=== PATIENT | male | born 1975 | race Caucasian/White ===

== ENCOUNTER 2018-10-14 23:04 | Inpatient (IN) | payer BC, SELFPAY ==
--- NOTE | 2018-10-14 23:11 | ED_ITS ---
HPI - Altered Mental Status General Chief Complaint: Psychiatric Symptoms Stated Complaint: hallucinations Time Seen by Provider: 10/14/18 23:11 Source: EMS and police Mode of arrival: EMS Limitations: altered mental status History of Present Illness HPI narrative: 43-year-old male. HPI was provided by police and EMS. Please stated that they were called by a neighboring Police Department about an individual who his head made text messages stating that there was intentions of harming himself. They [place] [address]. When the police arrived they stated that he was alert however was confused. Was obviously hallucinating. Was calm. They did find a bottle of 25 mg Benadryl with an original total count of 72 tablets however the bottle was empty. The patient did admit to taking 3 of these pills in order to help him sleep. He denied taking any other medications. Upon arrival here to the emergency department patient was calm. He did know that he was in [place] and at the hospital however was tangential. Would not directly answer many questions. He did state that he did not want to hurt himself. He did once again deny taking any other medications. He did admit to seeing children running around the emergency department which there was none at the time. Related Data Home Medications Medication Instructions Recorded Confirmed No Known Home Medications 10/15/18 10/15/18 Allergies Allergy/AdvReac Type Severity Reaction Status Date / Time Penicillins [PENICILLINS] Allergy Unknown Verified 10/15/18 00:48 Sulfa (Sulfonamide Allergy Unknown Verified 10/15/18 00:48 Antibiotics) [SULFA (SULFONAMIDE ANTIBIOTICS)] Review of Systems Review of Systems Very limited given his altered mental status. Please see HPI for review of systems ROS Unobtainable: Unobtainable due to mental condition Exam Initial Vital Signs Initial Vital Signs: Vital Signs Temperature 97.6 F 10/14/18 23:17 Pulse Rate 117 H 10/14/18 23:17 Respiratory Rate 23 10/14/18 23:17 Blood Pressure 165/103 H 10/14/18 23:17 Pulse Oximetry 98 10/14/18 23:17 Const General: cooperative, comfortable, well developed, well groomed and No acute distress Orientation: awake, oriented to person, oriented to place and confused (Confused about why he was here) Limitations: altered mental status HENUT Head: normal to inspection and normocephalic Face and sinus: normal facial exam Mouth: No moist mucous membranes (Dry mucous membranes) Eyes Other: 8 mm bilateral and reactive Resp Effort & Inspection: normal respiratory effort Auscultation: clear to auscultation bilaterally Cardio Rate: tachycardic Rhythm: regular rhythm Pulses: radial pulses present GI Inspection: non-distended Palpation: soft, No firm and No tender Skin Lesions: no lesions Rashes: no rashes Other: Dry skin Neuro General: alert, awake and moves all extremities Cognition: abnormal cognition Speech: speech normal Motor: muscle tone normal throughout Extrem General: normal to inspection and capillary refill normal Psych Appearance: grossly normal and well kempt Speech and Movement: not agitated, restless and slurred speech Mood: euphoric mood and No angry Affect: normal affect Attitude: cooperative Thought Process: flight of ideas, illogical, perseverating and tangential Thought Content: delusions, hallucinations visual and suicidality Judgment: poor Scores GCS [place] coma scale eye opening: Spontaneous [place] coma scale verbal response: Confused [place] coma scale motor response: Obey commands Roland coma scale total score: 14 Course Orders Ordered: ED Orders 10/14/18 22:55 Acetaminophen Stat Complete Blood Count AUTO DIFF Stat Comprehensive Metabolic Panel Stat Ethanol (ETOH) Stat Ketones (Beta-Hydroxybutyrate) Stat Lipase Stat Salicylate Stat Thyroid Stimulating Hormone Stat 10/14/18 23:14 CT head/brain wo con Stat EKG-12 Lead Stat 10/14/18 23:34 Ammonia (NH3) Stat Lactate (Lactic Acid) Stat 10/15/18 00:42 Urine Drug Screen, Rapid Stat 10/15/18 00:44 Urinalysis Sreen (Dip Only) Stat Vital Signs - 8 hr 10/14/18 23:17 10/15/18 00:00 10/15/18 00:47 Temperature 97.6 F Pulse Rate 117 H 121 H 128 H Respiratory Rate 23 20 15 Blood Pressure 165/103 H Blood Pressure [Left Arm] 168/104 H 158/109 H Pulse Oximetry 98 97 100 MDM - Altered Mental Status Lab Data Attestation: I reviewed the patient's lab results. Result diagrams: 10/14/18 22:55 10/14/18 22:55 Lab Results 10/14/18 10/14/18 10/14/18 Range/Units 22:55 22:55 22:55 WBC 12.0 H (4.5-11.0) X10^3/uL RBC 6.03 H (4.5-5.9) X10^6/uL Hgb 17.3 (13.5-17.5) g/dL Hct 50.4 (41-53) % MCV 83.7 (80-100) fL MCH 28.7 (26-34) PG MCHC 34.3 (30-36) % RDW 13.3 (11.6-14.8) % Plt Count 242 (150-400) X10^3/uL Neut % (Auto) 72.0 (50-75) % Lymph % (Auto) 18.6 L (25-40) % [place] % (Auto) 7.3 (3-14) % Eos % (Auto) 1.7 L (2-4) % Baso % (Auto) 0.4 (0-2) % Neut # (Auto) 8600 H (2470-3853) /uL Lymph # (Auto) 2200 (7259-2325) /uL [place] # (Auto) 900 (0-900) /uL Eos # (Auto) 200 (0-450) /uL Baso # (Auto) 0 (0-100) /uL Sodium 139 (137-145) mmol/L Potassium 3.1 L (3.4-5.1) mmol/L Chloride 98 (98-107) mmol/L Carbon Dioxide 30 (22-32) mmol/L BUN 8 L (9-20) mg/dL Creatinine 0.80 (0.66-1.25) mg/dL Estimated GFR > 60.0 (>60) mL/min BUN/Creatinine Ratio 10.0 (6-22) Glucose 120 H (70-100) mg/dL Lactate (0.7-2.1) mmol/L Calcium 9.1 (8.4-10.2) mg/dL Total Bilirubin 0.8 (0.2-1.3) mg/dL AST 34 (17-59) IU/L ALT 59 (21-72) IU/L Alkaline Phosphatase 82 (38-126) U/L Ammonia (9-30) umol/L Total Protein 8.4 H (6.3-8.2) g/dL Albumin 4.7 (3.5-5.0) g/dL Globulin 3.7 (1.7-4.1) g/dL Albumin/Globulin Ratio 1.3 (1.0-2.8) Lipase 48 (23-300) U/L TSH 3.72 (0.47-4.68) uIU/mL Salicylates < 1.0 (<20) mg/dL Acetaminophen < 10 L (10-30) ug/mL Ethyl Alcohol < 10 mg/dL Ketones 0.15 (<0.27) mmol/L 10/14/18 10/14/18 Range/Units 23:34 23:34 WBC (4.5-11.0) X10^3/uL RBC (4.5-5.9) X10^6/uL Hgb (13.5-17.5) g/dL Hct (41-53) % MCV (80-100) fL MCH (26-34) PG MCHC (30-36) % RDW (11.6-14.8) % Plt Count (150-400) X10^3/uL Neut % (Auto) (50-75) % Lymph % (Auto) (25-40) % [place] % (Auto) (3-14) % Eos % (Auto) (2-4) % Baso % (Auto) (0-2) % Neut # (Auto) (1960-8438) /uL Lymph # (Auto) (3183-3272) /uL [place] # (Auto) (0-900) /uL Eos # (Auto) (0-450) /uL Baso # (Auto) (0-100) /uL Sodium (137-145) mmol/L Potassium (3.4-5.1) mmol/L Chloride (98-107) mmol/L Carbon Dioxide (22-32) mmol/L BUN (9-20) mg/dL Creatinine (0.66-1.25) mg/dL Estimated GFR (>60) mL/min BUN/Creatinine Ratio (6-22) Glucose (70-100) mg/dL Lactate 1.0 (0.7-2.1) mmol/L Calcium (8.4-10.2) mg/dL Total Bilirubin (0.2-1.3) mg/dL AST (17-59) IU/L ALT (21-72) IU/L Alkaline Phosphatase (38-126) U/L Ammonia < 9.0 L (9-30) umol/L Total Protein (6.3-8.2) g/dL Albumin (3.5-5.0) g/dL Globulin (1.7-4.1) g/dL Albumin/Globulin Ratio (1.0-2.8) Lipase (23-300) U/L TSH (0.47-4.68) uIU/mL Salicylates (<20) mg/dL Acetaminophen (10-30) ug/mL Ethyl Alcohol mg/dL Ketones (<0.27) mmol/L Imaging Data CT scan - head: Radiologist's impression: No acute intracranial injury or fracture. ECG Data Attestation: I personally reviewed and interpreted this ECG as follows: Prior ECG tracings: not available for review Interpretation: Sinus tachycardia Ventricular rate of 120 Normal QRS QTC 423 milliseconds Normal axis Nonspecific ST T wave changes MDM Narrative Medical decision making narrative: Patient was confused and obviously having visual hallucinations. He was calm. This no signs of seizure activity. No signs of trauma. Patient potentially took quite a bit amount of Benadryl with what appears to be an apparent attempt to hurt himself. I did discuss the case with poison Control who recommended seizure precautions and supportive care. They stated that if the patient was asymptomatic is observation would be for 6 hours however he would need to be observed until his symptoms had completely resolved. Patient is not medically cleared. His EKG was unremarkable. He was experiencing signs of anticholinergic toxidrome. The patient stated that he felt like he needed to use the restroom however was unable to. A bladder scan showed greater than 700 cc. A Dinh catheter was placed. Discussed the case with GOLDY Reed the night hospitalist. Will admit for continued observation and treatment. Critical Care Time Critical Care Time: Yes Total Critical Care Time: 40 Attestation: The high probability of a clinically significant, sudden or life threatening deterioration of the neurologic, cardiovascular system(s) required my full and direct attention, intervention and personal management. The aggregate critical care time was 40 minutes. This time is in addition to time spent performing reported procedures but includes the following: [] Data Review and interpretation [] Patient assessment and monitoring of vital signs [] Documentation [] Medication orders and management Discharge Plan Departure Patient Disposition: Admitted as Observation Clinical Impression: Visual hallucination Altered mental status Qualifiers: Altered mental status type: unspecified Qualified Code(s): R41.82 - Altered mental status, unspecified Overdose Qualifiers: Encounter type: initial encounter Injury intent: intentional self-harm Qualified Code(s): T50.902A - Poisoning by unspecified drugs, medicaments and biological substances, intentional self-harm, initial encounter Discharge Date/Time: 10/15/18 01:06 Admit Date/Time: 10/15/18 00:30 Admit Provider: Eric Reed
--- NOTE | 2018-10-14 23:14 | DI.CT.S_ITS ---
PROCEDURE: CT HEAD/BRAIN WO CON INDICATIONS: Altered mental status with hallucinations TECHNIQUE: Noncontrast 4.5 mm thick angled axial sections acquired from the foramen magnum to the vertex, with coronal and sagittal reformats. For radiation dose reduction, the following was used: automated exposure control, adjustment of mA and/or kV according to patient size. COMPARISON: None. FINDINGS: Image quality: Excellent. CSF spaces: Basal cisterns are patent. No extra-axial fluid collections. Ventricles are normal in size and shape. Brain: No midline shift. No intracranial masses or hemorrhage. Santana-white matter interface is normal. Skull and face: Calvarium and visualized facial bones are intact, without suspicious lesions. Sinuses: Visualized sinuses and mastoids are clear. IMPRESSION: Normal noncontrast head CT. Note: No significant discrepancy from the preliminary report. Dictated by: Asaf Greenwood M.D. on 10/15/2018 at 7:31 Approved by: Asaf Greenwood M.D. on 10/15/2018 at 7:32
[2018-10-14 23:17] VITALS: BP 165/103; PULSE 117; RESP 23; TEMP 36.4; O2SAT 98; BMI 31.1
[2018-10-14 23:26] LABS: Add Manual Diff / Slide Review NO; Basophils Absolute Auto 0 /uL (0-100); Basophils Percent Auto 0.4 % (0-2); Eosinophils Absolute Auto 200 /uL (0-450); Eosinophils Percent Auto 1.7 % (2-4); Hematocrit 50.4 % (41-53); Hemoglobin 17.3 g/dL (13.5-17.5); Lymphocytes Absolute Auto 2200 /uL (1100-4500); Lymphocytes Percent Auto 18.6 % (25-40); Mean Corpuscular HGB Conc 34.3 % (30-36); Mean Corpuscular Hemoglobin 28.7 PG (26-34); Mean Corpuscular Volume 83.7 fL (80-100); Monocytes Absolute Auto 900 /uL (0-900); Monocytes Percent Auto 7.3 % (3-14); Neutrophils Absolute Auto 8600 /uL (1500-7000); Platelet Count 242 X10^3/uL (150-400); Red Blood Cell Count 6.03 X10^6/uL (4.5-5.9); Red Cell Distribution Width 13.3 % (11.6-14.8)
[2018-10-14 23:33] LABS: Acetaminophen < 10 ug/mL (10-30); Alanine Aminotransferase 59 IU/L (21-72); Albumin 4.7 g/dL (3.5-5.0); Albumin Globulin Ratio 1.3 (1.0-2.8); Alkaline Phosphatase 82 U/L (38-126); Aspartate Aminotransferase 34 IU/L (17-59); Bilirubin Total 0.8 mg/dL (0.2-1.3); Blood Urea Nitrogen 8 mg/dL (9-20); Calcium 9.1 mg/dL (8.4-10.2); Carbon Dioxide 30 mmol/L (22-32); Chloride 98 mmol/L (98-107); Estimated Glomerular Filt Rate > 60.0 mL/min (>60); Ethanol (ETOH) < 10 mg/dL; Globulin 3.7 g/dL (1.7-4.1); Glucose 120 mg/dL (70-100); Lipase 48 U/L (23-300); Potassium 3.1 mmol/L (3.4-5.1); Salicylate < 1.0 mg/dL (<20); Sodium 139 mmol/L (137-145); Total Protein 8.4 g/dL (6.3-8.2)
[2018-10-14 23:45] LABS: HEMOLYSIS 22 (0-50); Ketones (Beta-Hydroxybutyrate) 0.15 mmol/L (<0.27)
[2018-10-14 23:48] LABS: Ammonia (NH3) < 9.0 umol/L (9-30)
[2018-10-15] VITALS (25 sets, daily range): BP systolic 109–193; BP diastolic 66–110; PULSE 86–140; RESP 11–26; TEMP 36.1–37.1; O2SAT 89–100; BMI 31.1
[2018-10-15 00:19] LABS: Thyroid Stimulating Hormone 3.72 uIU/mL (0.47-4.68)
[2018-10-15 01:07] LABS: Appearance Urine UA CLEAR; Bilirubin Urine UA NEGATIVE (NEGATIVE); Color Urine UA YELLOW; Glucose Urine UA NEGATIVE (Negative); Ketones Urine UA NEGATIVE (NEGATIVE); Leukocyte Esterase Urine UA NEGATIVE (NEGATIVE); Nitrite Urine UA NEGATIVE (Negative); Occult Blood Urine UA NEGATIVE (Negative); Protein Urine UA NEGATIVE (Negative); Specific Gravity Urine UA 1.015 (1.000-1.035); Urobilinogen Urine UA 0.2 E.U./dL (0.2); pH Urine UA 6.5 (4.5-8.0)
[2018-10-15 01:12] LABS: Urine Amphetamines Negative (Negative); Urine Barbiturates Negative (Negative); Urine Benzodiazepines Negative (Negative); Urine Cocaine Negative (Negative); Urine MDMA Negative (Negative); Urine Methadone Negative (Negative); Urine Methamphetamines Negative (Negative); Urine Morphine/Opi cutoff 2000 Negative (Negative); Urine Oxycodone Negative (Negative); Urine Phencyclidine Negative (Negative); Urine Tetrahydrocannabinol Negative (Negative); Urine Tricyclic Antidepressant Negative (Negative)
--- NOTE | 2018-10-15 01:12 | PM.HP.1 ---
History of Present Illness Date Patient Seen: 10/15/18 Time Patient Seen: 00:44 Chief complaint: hallucinations Narrative: Mr. Gio Mulligan is a 43-year-old male patient no significant medical history other than sleep apnea who presents to the ER in the custody of police with altered mental status. Please refer notified of patient's intent for self-harm. The patient had sent text messages to his saying goodbye as well as a picture of a medication bottle. Per the the patient had communicated his intent to kill himself. The police located the patient in his car in [place] altered and hallucinating. An empty bottle of diphenhydramine 25 mg was brought in with patient. The bottle had contained 72 tablets and it is unknown how many tablets the patient took. The patient is altered, hallucinating, disoriented and unable to provide any information. Patient's Mya is at the bedside and reports that they have been having relationship difficulties and that the patient has been under stress at work. She provides the only medical history as chronic back pain and sleep apnea for which he appears to have undergone a sleep study. No subjective information is available from the patient due to his altered status. Upon arrival in the ER the patient was found to be afebrile with a temperature 97.6?, tachycardic with heart rate 117, hypertensive with a blood pressure 165/103, tachypneic at 23 saturating 98% on room air. Due to the altered status the patient he underwent a sit CT that was reported as negative. On laboratory analyses he has a white blood cell count of 12 with a hemoglobin of 17.3 and hematocrit of 50.4 and platelets of 242. On chemistry C has notably a low potassium at 3.1 but preserved renal function with a BUN of 8 and creatinine is 0.8 and nonfasting glucose 120. His total bilirubin is 0.8 and remainder of LFTs are within normal limits. His lactic acid was 1.0. The patient is found to have distended bladder on bladder scan with over 750 cc prompting placement of a Dinh catheter. Urine was sent for evaluation. The patient is admitted for acute anticholinergic overdose. Patient History Medical History (Updated 10/15/18 @ 01:12 by SARITHA Leon) Obstructive sleep apnea (Acute) Chronic back pain (Chronic) Keloid scar (Chronic) Chicken pox (Resolved) Fractures (Resolved) Surgical History No history of previous surgery (Resolved 08/30/15) Family History Mother Age: 63 Mental health problem Brother No problems noted. Sister No problems noted. Social History marital status: household members: spouse Smoking Status: Never smoker alcohol intake: current substance use type: does not use Family & Social History Safety & Behavioral: Suicidal Ideation Description None Suicide Plan Description No Plan Tobacco & Substance use: Smoking Status Never smoker alcohol intake current Comment: Patient lives in a town home with his Mya. There is a family history of hypertension and his mother has had psychiatric problems. He has 1 brother and 1 sister both of whom are in good health. 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 Smoking: The patient has never smoked. Alcohol: Patient will consume occasional alcohol. Substance use: Patient uses no herbal or cannabis products. Advanced directives: Patient has no advanced directive and is significantly altered and unable to make informed decisions. At this time he will be FULL CODE in accordance with the wishes of his Mya who is at bedside and will be surrogate decision maker. Meds Home Medications Medication Instructions Recorded Confirmed Type No Known Home Medications 10/15/18 10/15/18 History Allergies Allergy/AdvReac Type Severity Reaction Status Date / Time Penicillins [PENICILLINS] Allergy Unknown Verified 10/15/18 00:48 Sulfa (Sulfonamide Allergy Unknown Verified 10/15/18 00:48 Antibiotics) [SULFA (SULFONAMIDE ANTIBIOTICS)] Review of Systems Review of Systems unobtainable due to mental condition (Altered mental status due to anticholinergic overdose.) Exam Vital Signs (past 8 hours): - 10/14/18 23:17 10/15/18 00:00 10/15/18 00:47 Temperature 97.6 F Pulse Rate 117 H 121 H 128 H Respiratory Rate 23 20 15 Blood Pressure 165/103 H Blood Pressure [Left Arm] 168/104 H 158/109 H Pulse Oximetry 98 97 100 Oxygen Delivery Method Room Air Narrative Exam Narrative: GENERAL APPEARANCE: well developed, well nourished, agitated with hallucinations and slurred speech. HEAD: Normocephalic, atraumatic, no scalp lesions. EYES: pupils are 5 mm bilaterall, reactive to light and accommodation, sclera non-icteric, extraocular unable to assess EOMs due to lack of patient cooperation, will track to voice, gaze crosses midline. EARS: normal external structures, no ear pain NOSE: sinuses non tender to percussion, no rhinorrhea ORAL CAVITY: mucosa dry without lesions or exudate, palate normal, tongue in midline. THROAT: Unable visualize NECK/THYROID: neck supple, no jugular venous distention, no carotid bruit, no thyromegaly, trachea midline. LYMPH NODES: no cervical or supraclavicular lymphadenopathy. SKIN: warm and dry, flushed, no suspicious lesions, no rashes. HEART: Tachycardia with regular rhythm, S1-S2 without murmur, no rubs or gallops, brisk capillary refill, no edema LUNGS: clear to auscultation bilaterally, no coarseness crackles or wheezing, no cough present CHEST: Symmetrical movement, no accessory muscle use, no pain to AP and lateral compression. ABDOMEN: Soft, no distention, no epigastric or abdominal tenderness on palpation, no guarding or peritoneal signs, no organomegaly, active bowel tones. BACK: Normal curvature, nontender to palpation, no CVA tenderness on percussion EXTREMITIES: moves all extremities, strength is 5/5 and symmetrical. NEUROLOGIC: Patient is awake with restlessness and agitation, oriented to person only, speech is slurred, inappropriate responses to questions, will follow commands inconsistently, moves all extremities PSYCH: alert, impaired cognition, who is in a shins, will track voice and consistently Objective Labs Result Diagrams: 10/14/18 22:55 10/14/18 22:55 Labs: Laboratory Results - last 24 hr 10/14/18 10/14/18 10/14/18 22:55 22:55 22:55 WBC 12.0 H RBC 6.03 H Hgb 17.3 Hct 50.4 MCV 83.7 MCH 28.7 MCHC 34.3 RDW 13.3 Plt Count 242 Neut % (Auto) 72.0 Lymph % (Auto) 18.6 L [place] % (Auto) 7.3 Eos % (Auto) 1.7 L Baso % (Auto) 0.4 Neut # (Auto) 8600 H Lymph # (Auto) 2200 [place] # (Auto) 900 Eos # (Auto) 200 Baso # (Auto) 0 Sodium 139 Potassium 3.1 L Chloride 98 Carbon Dioxide 30 BUN 8 L Creatinine 0.80 Estimated GFR > 60.0 BUN/Creatinine Ratio 10.0 Glucose 120 H Lactate Calcium 9.1 Total Bilirubin 0.8 AST 34 ALT 59 Alkaline Phosphatase 82 Ammonia Total Protein 8.4 H Albumin 4.7 Globulin 3.7 Albumin/Globulin Ratio 1.3 Lipase 48 TSH 3.72 Urine Color Urine Appearance Urine pH Ur Specific [place] Urine Protein Urine Glucose (UA) Urine Ketones Urine Occult Blood Urine Nitrate Urine Bilirubin Urine Urobilinogen Ur Leukocyte Esterase Salicylates < 1.0 Acetaminophen < 10 L Ethyl Alcohol < 10 Ketones 0.15 10/14/18 10/14/18 10/15/18 23:34 23:34 00:38 WBC RBC Hgb Hct MCV MCH MCHC RDW Plt Count Neut % (Auto) Lymph % (Auto) [place] % (Auto) Eos % (Auto) Baso % (Auto) Neut # (Auto) Lymph # (Auto) [place] # (Auto) Eos # (Auto) Baso # (Auto) Sodium Potassium Chloride Carbon Dioxide BUN Creatinine Estimated GFR BUN/Creatinine Ratio Glucose Lactate 1.0 Calcium Total Bilirubin AST ALT Alkaline Phosphatase Ammonia < 9.0 L Total Protein Albumin Globulin Albumin/Globulin Ratio Lipase TSH Urine Color Yellow Urine Appearance Clear Urine pH 6.5 Ur Specific [place] 1.015 Urine Protein Negative Urine Glucose (UA) Negative Urine Ketones Negative Urine Occult Blood Negative Urine Nitrate Negative Urine Bilirubin Negative Urine Urobilinogen 0.2 Ur Leukocyte Esterase Negative Salicylates Acetaminophen Ethyl Alcohol Ketones Assessment & Plan Assessment & Plan narrative: The patient is brought into the hospital by police following patient is sending text messages stating intent on self-harm and overdose on diphenhydramine. 1. Acute anticholinergic overdose on diphenhydramine, present on admission. -patient took an unknown number of diphenhydramine 25 mg tablets. -he presents consistent with anticholinergic poisoning with cutaneous flushing, and hydrocephalus, mydriasis, delirium with hallucinations and urinary retention. -was Control contacted by the emergency department who recommended supportive care, seizure precautions and lorazepam as needed for agitation. -the patient is redirectable at this time and not showing signs of aggression. -Dinh catheter has been placed for urinary retention. -normal saline 150 mL per hour. -seizure precautions, lorazepam 1 mg IV as needed seizure. 2. Acute attempted suicide. -confirmed with the patient's the receipt of text messages indicating intent on self-harm and to ?say goodbye?. -patient found by police who had been contacted relative to the text messages and found altered with an empty bottle of diphenhydramine. -the patient is acutely altered with delirium and hallucinations, he is admitted until such time he can be medically cleared for mental health evaluation. 3. Presumed Hypokalemia, present on admission. -potassium level is 3.1 on admission. -patient with no evidence of hyperkalemia on EKG or indication acid-base derangement with carbon dioxide on chemistry panel of 30. -patient with good renal function with a BUN of 8 creatinine 0.8 -potassium chloride 60 mEq IV x1 -will follow electrolyte levels. The patient is admitted to the hospital due to severity of symptoms, potential complications, risk for adverse events and the patient safety. The patient is admitted as an inpatient with expected length of stay to be greater than 2 midnights. Scores GCS [place] coma scale eye opening: Spontaneous [place] coma scale verbal response: Words [place] coma scale motor response: Obey commands (Inconsistently) [place] coma scale total score: 13
[2018-10-15] MEDS: LORazepam 2 MG/ML INJ 0.5 MG IV (02:00)
[2018-10-15] MEDS: SODIUM CHLORIDE 0.9% 1,000 ML 150 ML IV (02:16)
[2018-10-15] MEDS: POTASSIUM CHLORIDE 60 MEQ in SODIUM CHLORIDE 0.9% 500 ML 88.333 ML IV (02:17)
[2018-10-15] MEDS: LORazepam 2 MG/ML INJ 1 MG IV ×2 (03:35→04:15)
--- NOTE | 2018-10-15 04:52 | PC.NURSE ---
Addendum entered by Clarita Muro R.N. 10/15/18 05:00: Pt has had 1:1 since approx 2am, 1:1 remains and restraint checks done per policy. Original Note: Pt. arrived with at approx 0115. He was confused, hallucinating, having difficultly with speech and unable to follow most commands. Pt was also agitated, irriatable, impulsive and restless, 0.5mg Ativan given as ordered at 0200. At 0320 pt became combative with staff and 1mg ativan was given as ordered at 0335, then again at 0415 per orderd. At 0430 Pt was placed in Bilat UE soft restraints as ordered, after multiple attempts to climb over the side rails and attempting to hit and kick staff. The was notified at 0438 of behaviors, risks for injury, medication and restraints.
[2018-10-15 05:46] LABS: BUN Creatinine Ratio 7.5 (6-22); Blood Urea Nitrogen 6 mg/dL (9-20); Calcium 9.1 mg/dL (8.4-10.2); Carbon Dioxide 26 mmol/L (22-32); Chloride 103 mmol/L (98-107); Estimated Glomerular Filt Rate > 60.0 mL/min (>60); Glucose 124 mg/dL (70-100); HEMOLYSIS < 15 (0-50); Potassium 3.6 mmol/L (3.4-5.1); Sodium 139 mmol/L (137-145)
[2018-10-15 05:57] LABS: Add Manual Diff / Slide Review NO; Basophils Absolute Auto 0 /uL (0-100); Basophils Percent Auto 0.5 % (0-2); Eosinophils Absolute Auto 100 /uL (0-450); Eosinophils Percent Auto 0.6 % (2-4); Hematocrit 46.2 % (41-53); Lymphocytes Absolute Auto 1200 /uL (1100-4500); Lymphocytes Percent Auto 14.5 % (25-40); Mean Corpuscular HGB Conc 34.7 % (30-36); Mean Corpuscular Hemoglobin 28.9 PG (26-34); Mean Corpuscular Volume 83.3 fL (80-100); Monocytes Absolute Auto 600 /uL (0-900); Monocytes Percent Auto 7.4 % (3-14); Neutrophils Absolute Auto 6400 /uL (1500-7000); Platelet Count 226 X10^3/uL (150-400); Red Blood Cell Count 5.55 X10^6/uL (4.5-5.9); Red Cell Distribution Width 13.3 % (11.6-14.8); White Blood Cell Count 8.3 X10^3/uL (4.5-11.0)
--- NOTE | 2018-10-15 07:50 | PC.NURSE ---
Patient moved to ICU per policy, report given to Danay CARREON in ICU.
[2018-10-15] MEDS: LORazepam 2 MG/ML INJ IV ×9 (08:23→23:42)
--- NOTE | 2018-10-15 09:15 | PM.PN.1 ---
Subjective Date Patient Seen: 10/15/18 Time Patient Seen: 09:15 Interval history: He is seen in the intensive care unit today to follow-up his anticholinergic toxicity, Benadryl overdose and suicide attempt. He also had hypokalemia on admission. This is of the delirium, as expected, continues, currently requiring wrist restraints and high-dose lorazepam. He is being monitored with the expected tachycardia and is being hydrated with IV fluids. There was reportedly a visit from a 3rd person involved, in addition to his , related to the marriage issues. Exam Vital Signs (past 8 hours): - 10/15/18 04:42 10/15/18 07:45 10/15/18 08:00 Temperature 98.2 F 98.7 F Pulse Rate 123 H 108 H 120 H Respiratory Rate 18 22 17 Blood Pressure 153/102 H 161/108 H 166/91 H Pulse Oximetry 94 96 94 10/15/18 09:00 Temperature Pulse Rate 104 H Respiratory Rate 19 Blood Pressure 148/88 H Pulse Oximetry 94 Oxygen Delivery Method Room Air Oxygen Flow Rate 0 Narrative Exam Narrative: He is alert. He is not oriented. He intermittently sits up and lies back down, appearing and acting very confused. 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 Heart is tachycardic, regular rhythm without murmur. Lungs are clear to auscultation bilaterally. Abdomen is soft, bowel sounds positive, nontender, no organomegaly. Extremities have no ankle edema. Objective Labs Result Diagrams: 10/15/18 05:12 10/15/18 05:12 Labs: Laboratory Results - last 24 hr 10/14/18 10/14/18 10/14/18 22:55 22:55 22:55 WBC 12.0 H RBC 6.03 H Hgb 17.3 Hct 50.4 MCV 83.7 MCH 28.7 MCHC 34.3 RDW 13.3 Plt Count 242 Neut % (Auto) 72.0 Lymph % (Auto) 18.6 L Colbert % (Auto) 7.3 Eos % (Auto) 1.7 L Baso % (Auto) 0.4 Neut # (Auto) 8600 H Lymph # (Auto) 2200 Colbert # (Auto) 900 Eos # (Auto) 200 Baso # (Auto) 0 Sodium 139 Potassium 3.1 L Chloride 98 Carbon Dioxide 30 BUN 8 L Creatinine 0.80 Estimated GFR > 60.0 BUN/Creatinine Ratio 10.0 Glucose 120 H Lactate Calcium 9.1 Total Bilirubin 0.8 AST 34 ALT 59 Alkaline Phosphatase 82 Ammonia Total Protein 8.4 H Albumin 4.7 Globulin 3.7 Albumin/Globulin Ratio 1.3 Lipase 48 TSH 3.72 Urine Color Urine Appearance Urine pH Ur Specific [place] Urine Protein Urine Glucose (UA) Urine Ketones Urine Occult Blood Urine Nitrate Urine Bilirubin Urine Urobilinogen Ur Leukocyte Esterase Salicylates < 1.0 Urine Opiates Screen Ur Oxycodone Screen Urine Methadone Screen Acetaminophen < 10 L Ur Barbiturates Screen U Tricyclic Antidepress Ur Phencyclidine Scrn Ur Amphetamines Screen U Methamphetamines Scrn Ur MDMA Scrn (Ecstasy) U Benzodiazepines Scrn Urine Cocaine Screen U Marijuana (THC) Screen Ethyl Alcohol < 10 Ketones 0.15 10/14/18 10/14/18 10/15/18 23:34 23:34 00:38 WBC RBC Hgb Hct MCV MCH MCHC RDW Plt Count Neut % (Auto) Lymph % (Auto) Colbert % (Auto) Eos % (Auto) Baso % (Auto) Neut # (Auto) Lymph # (Auto) Colbert # (Auto) Eos # (Auto) Baso # (Auto) Sodium Potassium Chloride Carbon Dioxide BUN Creatinine Estimated GFR BUN/Creatinine Ratio Glucose Lactate 1.0 Calcium Total Bilirubin AST ALT Alkaline Phosphatase Ammonia < 9.0 L Total Protein Albumin Globulin Albumin/Globulin Ratio Lipase TSH Urine Color Urine Appearance Urine pH Ur Specific [place] Urine Protein Urine Glucose (UA) Urine Ketones Urine Occult Blood Urine Nitrate Urine Bilirubin Urine Urobilinogen Ur Leukocyte Esterase Salicylates Urine Opiates Screen Negative Ur Oxycodone Screen Negative Urine Methadone Screen Negative Acetaminophen Ur Barbiturates Screen Negative U Tricyclic Antidepress Negative Ur Phencyclidine Scrn Negative Ur Amphetamines Screen Negative U Methamphetamines Scrn Negative Ur MDMA Scrn (Ecstasy) Negative U Benzodiazepines Scrn Negative Urine Cocaine Screen Negative U Marijuana (THC) Screen Negative Ethyl Alcohol Ketones 10/15/18 10/15/18 10/15/18 00:38 05:12 05:12 WBC 8.3 RBC 5.55 Hgb 16.0 Hct 46.2 MCV 83.3 MCH 28.9 MCHC 34.7 RDW 13.3 Plt Count 226 Neut % (Auto) 77.0 H Lymph % (Auto) 14.5 L Colbert % (Auto) 7.4 Eos % (Auto) 0.6 L Baso % (Auto) 0.5 Neut # (Auto) 6400 Lymph # (Auto) 1200 Colbert # (Auto) 600 Eos # (Auto) 100 Baso # (Auto) 0 Sodium 139 Potassium 3.6 Chloride 103 Carbon Dioxide 26 BUN 6 L Creatinine 0.80 Estimated GFR > 60.0 BUN/Creatinine Ratio 7.5 Glucose 124 H Lactate Calcium 9.1 Total Bilirubin AST ALT Alkaline Phosphatase Ammonia Total Protein Albumin Globulin Albumin/Globulin Ratio Lipase TSH Urine Color Yellow Urine Appearance Clear Urine pH 6.5 Ur Specific [place] 1.015 Urine Protein Negative Urine Glucose (UA) Negative Urine Ketones Negative Urine Occult Blood Negative Urine Nitrate Negative Urine Bilirubin Negative Urine Urobilinogen 0.2 Ur Leukocyte Esterase Negative Salicylates Urine Opiates Screen Ur Oxycodone Screen Urine Methadone Screen Acetaminophen Ur Barbiturates Screen U Tricyclic Antidepress Ur Phencyclidine Scrn Ur Amphetamines Screen U Methamphetamines Scrn Ur MDMA Scrn (Ecstasy) U Benzodiazepines Scrn Urine Cocaine Screen U Marijuana (THC) Screen Ethyl Alcohol Ketones Assessment & Plan Assessment & Plan narrative: 1. Acute anticholinergic overdose on diphenhydramine, present on admission. -patient took an unknown number of diphenhydramine 25 mg tablets. -he continues to show evidence of anticholinergic poisoning with cutaneous flushing, and hydrocephalus, mydriasis, delirium with hallucinations and urinary retention. -poison Control contacted by the emergency department who recommended supportive care, seizure precautions and lorazepam as needed for agitation. -the patient is redirectable most of the time but soft wrist restraints are being required in addition to lorazepam at the moment. -Dinh catheter has been placed for urinary retention. -normal saline 150 mL per hour. -seizure precautions, lorazepam 1 mg IV as needed seizure. 2. Acute attempted suicide. -confirmed with the patient's the receipt of text messages indicating intent on self-harm and to ?say goodbye?. -patient found by police who had been contacted relative to the text messages and found altered with an empty bottle of diphenhydramine. -the patient is acutely altered with delirium and hallucinations, he is admitted until such time he can be medically cleared for mental health evaluation. 3. Presumed Hypokalemia, present on admission. -potassium level is 3.1 on admission, now up to 3.6. -patient with good renal function with a BUN of 8 creatinine 0.8 -potassium chloride 60 mEq IV x1 given last night -will follow electrolyte levels. Quality VTE Deep Vein Thrombosis/Pulmonary Embolism Present on Admission: No
--- NOTE | 2018-10-15 10:46 | PC.NURSE ---
BREAD DOUGH MIXER note: Patient appears to be asleep (snoring) and patient's Mya just arrived 10:42am
[2018-10-15] MEDS: ENOXAPARIN 40 MG/0.4 ML SYRINGE SUBCUT (11:28)
--- NOTE | 2018-10-15 15:05 | CM.DANOTE ---
DCP/Assessment: Reviewed chart. Patient is a 43yr old male whom presents to the ED on 10-15-18 brought in by [employer] with altered mental status. PCP listed is Dr. Todd. Primary payor is [facility] out of [facility]. Per notes, patient purposely took approximately 72 tablets of 25mg diphehydramine (Benadryl) in an attempt to end his life. Patient had sent text message(s) to his spouse/Charlotte saying richie. Patient found in his automobile in [place] and brought to ED. Spoke with RN/Helen today and Dr. Gardiner, patient requiring sedation and restraints off/on today. Patient unable to access secondary to his mental status. CALL CENTER TEAM LEADER did introduce role when he woke up today for short amount of time. Asked patient if he knew why he was here? He said suicide attempt. Patient difficult to understand today because of medications. Patient's spouse/Charlotte showed up at [place] during CALL CENTER TEAM LEADER brief attempt at interview. Charlotte reports that she filed for divorce from patient a few months ago. She believes that patient has been staying at girlfriend's? house in [place] Patient has been calling spouse a lot lately and appears to be having difficulty with her moving on. Charlotte reports that patient has no mental health history nor does she believe he has ever been treated for any type of mental illness. Spouse reports rare alcohol use. Spouse reports that together her and patient have 1 biological child together. Three children spouse's residence in [place]. 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 Spouse hopeful that patient can get some mental health assistance. Spouse feels that patient would be best suited for inpatient psychiatric treatment rather than IOP. Spouse reports that patient having very difficult time over the last few months related to divorce and loss of control. Notified spouse that CALL CENTER TEAM LEADER team would continue to follow closely. When patient deemed medically appropriate will assess for inpatient psychiatric care. P: Pending. At this time patient would benefit from inpatient psychiatric care for suicide attempt. No previous history indicated. No substance or alcohol abuse noted. Patient appears to be at high risk for repeat attempt. Will need to assess when medically appropriate. MIGUEL Roy Discharge Planning/Care Management CM Discharge Assessment Start: 10/15/18 15:00 Freq: Status: Active Protocol: Document 10/15/18 15:00 KJS (Rec: 10/15/18 15:05 KJS [id number]) Discharge Planning Assessment Assigned Pbx Manager MIGUEL Roy Contact Information Charlotte Mulligan (spouse) Advance Directives? No History Provided By Family Member Medical Record Prior Living Arrangements House Comment Unclear where patient currently resides per spouse. Currently going through active divorce. Patient has not been living with spouse/childern for an estimated few months/ Type of transporation used prior to Drives own vehicle admit Independent with ADL's Yes Is patient alert and oriented? No: Unable to interview secondary to overdose of benadryl. Comment Pending outcome of hospitalization. Discharge Plan Psychiatric Facility Transportation Arrangement Pending Referrals Initiated Other Additional Comment None initiated until patient medically appropriate to interview/access. Whiteboard Updated in Patient Room with Yes name and ext. # of Pbx Manager Review Status In Process Next Review Type Continued Stay Review ED Psychiatric Symptoms Assessment Start: 10/14/18 23:16 Freq: Status: Active Protocol: Document 10/14/18 23:25 AP (Rec: 10/14/18 23:32 AP [id number]) Psychiatric Symptoms Assessment Symptoms/Complaint Altered Mental Status History Of Same No Associated Psychiatric Symptoms Racing Thoughts Visual Hallucinations Details of Plan Patient denies thoughts of self harm. Level of Consciousness Alert Patient Orientation Name Month Place Patient Behavior/Mood Cooperative Distractible Impulsive Ability to Follow Directions Excellent Affect Description Calm Hallucination Type Visual Thought Process: Disorganized Confabulating Major Depressive Episode No Feelings of Hopelessness No Suicidal Ideation None Suicide Plan No Plan Homicidal Ideation None Nausea/Vomiting None
[2018-10-15] MEDS: SODIUM CHLORIDE 0.9% 1,000 ML 22 ML IV (16:14)
--- NOTE | 2018-10-15 22:54 | PC.NURSE ---
ros note pt confused, has rambling conversation, soft spoken. pt will sometimes stop in mid sentence and stare off into space. Confused. Will get argumentative when staff trying to reorient pt. Pt trying to stand up in bed, go to vending machine. Had to call security once when pt became angry, suspicious, aggressive. After 8 mg of Ativan, pt finally asleep. O2 sats 92-93% on room air. Apnea noted. Pt is a known cpap user.
[2018-10-16] VITALS (11 sets, daily range): BP systolic 117–160; BP diastolic 67–92; PULSE 87–111; RESP 15–20; TEMP 36.3–36.6; O2SAT 92–99; BMI 31.0
--- NOTE | 2018-10-16 01:56 | PC.NURSE ---
Addendum entered by Lise Erwin R.N. 10/16/18 06:40: Patient slept until 0600, woke up asking questions how and when he came to the hospital. Speech clear, but still a bit pressured and rambling. HR 100. BP 135/85. Original Note: At change of shift, 2345, patient is awake, impulsive, and disoriented to place, time, and events. Can tell me he is from [place] and that he has three children, then he starts talking to someone who is not in the room. 2mg IV Ativan given for increasing agitation. SR, VSS. 1:1 constant obs.
[2018-10-16] MEDS: SODIUM CHLORIDE 0.9% 1,000 ML 100 ML IV (02:37)
[2018-10-16 05:22] LABS: Blood Urea Nitrogen 10 mg/dL (9-20); Calcium 8.3 mg/dL (8.4-10.2); Carbon Dioxide 30 mmol/L (22-32); Chloride 106 mmol/L (98-107); Estimated Glomerular Filt Rate > 60.0 mL/min (>60); Glucose 79 mg/dL (70-100); HEMOLYSIS < 15 (0-50); Potassium 3.8 mmol/L (3.4-5.1); Sodium 140 mmol/L (137-145)
--- NOTE | 2018-10-16 10:41 | PM.PN.1 ---
Subjective Date Patient Seen: 10/16/18 Interval history: He is seen in his room in the intensive care unit this morning to follow up his diphenhydramine overdose. He is now alert and talking, although appears to be confabulating somewhat. He tells me that he took the whole bottle of diphenhydramine as a suicide attempt. He is very careful with his words and appears somewhat guarded in answering questions. He tells me his children are 8 years old and 13 years old, that he has been with his current for 5 years +2 and stops at that point answering open-ended questions. Social Service tells me that his current filed for divorce several weeks or months ago and that he is on his own now although he does have another significant other elsewhere. His has been visiting. She works in a healthcare facility locally. When I commented to him that his heart rate continues to be high, just above 100, his response is that his heart rate at baseline is always high in that range. When I ask him what his 1st hospital memory is he says he that he remembers filling out paperwork when he came in. That is unlikely. The BMP is normal with a potassium of 3.8. Exam Vital Signs (past 8 hours): - 10/16/18 03:00 10/16/18 04:00 10/16/18 05:00 Temperature 97.4 F L Pulse Rate 90 89 93 H Respiratory Rate 15 16 16 Blood Pressure 125/76 124/68 117/72 Pulse Oximetry 93 94 95 10/16/18 06:00 10/16/18 07:00 10/16/18 08:00 Temperature 97.6 F Pulse Rate 103 H 102 H 106 H Respiratory Rate 18 20 16 Blood Pressure 135/85 136/67 145/88 H Pulse Oximetry 99 94 99 10/16/18 09:00 10/16/18 09:42 Temperature Pulse Rate 111 H Respiratory Rate 18 18 Blood Pressure 160/79 H Pulse Oximetry 97 96 Oxygen Delivery Method Room Air Oxygen Flow Rate 0 Narrative Exam Narrative: He is alert and oriented x3, in no apparent distress. He appears to have no accurate memory of the last few days. He mentions that he is missing 1 day. Heart is tachycardic and regular with out murmur. Lungs are clear to auscultation bilaterally. Abdomen is soft, bowel sounds positive, nontender, no organomegaly.\ I see no neck rey or cut rey on his arms or legs. Objective Labs Result Diagrams: 10/15/18 05:12 10/16/18 04:51 Labs: Laboratory Results - last 24 hr 10/16/18 04:51 Sodium 140 Potassium 3.8 Chloride 106 Carbon Dioxide 30 BUN 10 Creatinine 1.00 Estimated GFR > 60.0 BUN/Creatinine Ratio 10.0 Glucose 79 Calcium 8.3 L Assessment & Plan Assessment & Plan narrative: 1. Acute anticholinergic overdose on diphenhydramine, present on admission. -patient took an unknown number of diphenhydramine 25 mg tablets. Today he says that he took the whole bottle, which is consistent with the amount of sedation/delirium/duration of this episode. -mild tachycardia is the only ongoing sign of anticholinergic effect. He is medically stable for transfer/discharge. -telemetry will be stopped and IV fluid can be stopped also. 2. Acute attempted suicide. -confirmed with the patient's the receipt of text messages indicating intent on self-harm and to ?say goodbye?. -patient found by police who had been contacted relative to the text messages and found altered with an empty bottle of diphenhydramine. -the patient was acutely altered with delirium and hallucinations, he is no longer delirious. He shows no outward signs of suicidal intent or depression but is using very guarded language and certainly continues at high risk for completing suicide, ongoing depression. 3. Presumed Hypokalemia, present on admission. -potassium level is 3.1 on admission, now up to 3.8. -patient with good renal function with a BUN of 8 creatinine 0.8 -potassium chloride 60 mEq IV x1 given on admission He is a patient of Dr. Todd who was inadvertently admitted to the [facility] Hospitalist Service from the ED. Dr. Benson has asked the hospitalist service to continue medical management. He is medically stable for DCR evaluation and potential placement. Quality VTE Deep Vein Thrombosis/Pulmonary Embolism Present on Admission: No
--- NOTE | 2018-10-16 14:42 | PC.NURSE ---
pt improved this date- he is alert/mostly appropriate and cooperative with care and plan - saline locked- removed tele and had in depth meeting with DIGITAL SOLUTIONS ARCHITECT and pt is agreeable to go voluntary to out pt care- tolerating general diet
--- NOTE | 2018-10-16 15:33 | CM.DPC ---
DCP/continued: Reviewed chart. RECORDINGS LIBRARIAN was able to meet with patient today to do assessment. Spouse/Charlotte present for initial interview. Patient alert and oriented to his surroundings. Patient sitting in chair open to discuss what led him to hospitalization. Patient reports that he currently is going through divorce with his current /Charlotte . Spouse confirms and reports that patient no longer resides in the residence. Patient reports that he stays at [facility] in [place]. RECORDINGS LIBRARIAN asked patient what his intent was on 10-15-18. Patient reports that he wanted to end it when asked patient to be more specific he became emotional and reported life. Patient attributes this incident with everything going on in his life. He specifically relates to not being good enough for his children and spouse. Patient denies having these intense feelings in the past and is not quite sure it he decided to take the pills when he did? Patient did leave note to spouse and sent texts to both spouse and apparent female friend. Spouse reports that patient has been having affair. Patient denies previous suicide attempts and is not currently enrolled in any type of counseling services. Patient does not take any psychotropic drugs for depression/anxiety. Patient reports that he does not smoke and rarely drinks alcohol. Spouse confirms the above. Met alone with patient after discussion with spouse present. Patient emotional and reports that he wants to save his marriage. However, he is unable or unsure if he will be able to do that. Patient denies current suicidal thoughts. Patient agreeable to get assistance/mental health help after hospitalization. Spoke again with patient with spouse present. Patient agreeable to go inpatient for short term mood stabilization. Spouse in agreement and will support him as much as she can. Spouse unclear what the future holds for the two of them but appears very supportive and willing to do whatever is in patient's best interest. RECORDINGS LIBRARIAN placed call to [facility] [place], [place], and [facility]. Both [place] and [facility] reviewing for potential admit tomorrow 10-17-18. Dr. Gardiner and patient and spouse updated. At this time it seems patient would be most appropriate for short term inpatient psychiatric services. The severity of the attempt and no involvement with any mental health services continues to put patient at high risk for repeat. P: Pending. Dr. Gardiner made aware that RECORDINGS LIBRARIAN unable to locate inpatient psychiatric bed today. However, looks positive for tomorrow 10-17-18. Patient will remain hospitalized tonight. Patient and spouse aware and agreeable. MIGUEL Roy
--- NOTE | 2018-10-16 23:48 | PC.NURSE ---
ros note pt calm and cooperative. 1:1 sitter for constant observation. Suicide precautions in place. Jing at bedside until after dinner.
[2018-10-17 00:30] VITALS: BP 115/70; PULSE 95; RESP 16; TEMP 36.2; O2SAT 96
[2018-10-17 07:43] VITALS: BP 142/91; PULSE 102; RESP 16; TEMP 36.6; O2SAT 94
--- NOTE | 2018-10-17 09:15 | PM.DS.1 ---
History of Present Illness Date Patient Seen: 10/15/18 Chief complaint: hallucinations Narrative: Written by Eric MELARA: Mr. Gio Mulligan is a 43-year-old male patient no significant medical history other than sleep apnea who presents to the ER in the custody of police with altered mental status. Please refer notified of patient's intent for self-harm. The patient had sent text messages to his saying goodbye as well as a picture of a medication bottle. Per the the patient had communicated his intent to kill himself. The police located the patient in his car in [place] altered and hallucinating. An empty bottle of diphenhydramine 25 mg was brought in with patient. The bottle had contained 72 tablets and it is unknown how many tablets the patient took. The patient is altered, hallucinating, disoriented and unable to provide any information. Patient's Mya is at the bedside and reports that they have been having relationship difficulties and that the patient has been under stress at work. She provides the only medical history as chronic back pain and sleep apnea for which he appears to have undergone a sleep study. No subjective information is available from the patient due to his altered status. Upon arrival in the ER the patient was found to be afebrile with a temperature 97.6?, tachycardic with heart rate 117, hypertensive with a blood pressure 165/103, tachypneic at 23 saturating 98% on room air. Due to the altered status the patient he underwent a sit CT that was reported as negative. On laboratory analyses he has a white blood cell count of 12 with a hemoglobin of 17.3 and hematocrit of 50.4 and platelets of 242. On chemistry C has notably a low potassium at 3.1 but preserved renal function with a BUN of 8 and creatinine is 0.8 and nonfasting glucose 120. His total bilirubin is 0.8 and remainder of LFTs are within normal limits. His lactic acid was 1.0. The patient is found to have distended bladder on bladder scan with over 750 cc prompting placement of a Dinh catheter. Urine was sent for evaluation. The patient is admitted for acute anticholinergic overdose. Discharge Providers Date of admission: 10/15/18 00:30 Discharge Date: 10/17/18 Primary care physician: Raul Todd MD Consults: 10/15/18 01:06 Consult to Discharge Planning Routine Comment: Consult to Early [employer] Teacher Routine Comment: Attempted suicide, Benadryl overdose. Discharge provider: Ivett Delgado DO Summary Discharge Diagnosis: 1. Acute anticholinergic overdose on diphenhydramine, present on admission. Resolved. 2. Acute attempted suicide, present on admission. Resolved. 3. Acute hypokalemia, present on admission. Resolved. Hospital Course: Gio Mulligan is a 43-year-old male patient without significant medical history other than sleep apnea who presented to the ED in the custody of police with altered mental status. 1. Acute anticholinergic overdose on diphenhydramine, present on admission. Resolved. -Patient took an unknown number of diphenhydramine 25 mg tablets but reports he took the whole bottle, which is consistent with the amount of sedation/delirium/duration of this episode. -No longer showing signs of anticholinergic effect. He is medically stable for transfer/discharge. 2. Acute attempted suicide, present on admission. Resolved. -Confirmed with the patient's the receipt of text messages indicating intent on self-harm and to ?say goodbye?. Patient found by police who had been contacted relative to the text messages and found altered with an empty bottle of diphenhydramine. -The patient was acutely altered with delirium and hallucinations. He is no longer delirious and medically stable to be discharged for voluntary treatment. He denies suicidal ideation, shows no outward signs of suicidal intent or depression but is using very guarded language and certainly continues to be high risk for completing suicide. 3. Acute hypokalemia, present on admission. Resolved. -Initial potassium level was 3.1 on admission. Received potassium chloride 60 mEq IV x1. Potassium level 3.8. Status at Discharge Functional status at discharge: independent ambulation Overall status at discharge: patient is back to baseline Exam Vital Signs (past 8 hours): - 10/17/18 07:43 Temperature 97.9 F Pulse Rate 102 H Respiratory Rate 16 Blood Pressure 142/91 H Pulse Oximetry 94 Oxygen Delivery Method Room Air Oxygen Flow Rate 0 Narrative Exam Narrative: General: Young male sitting in bedside chair and in no acute distress, well-developed, well-nourished, patient is very guarded with depressed mood and flat affect otherwise appropriately interactive. HEENT: Normocephalic, atraumatic. External ears without defect. Pupils equal, round, and reactive to light. Anicteric sclerae, moist conjunctivae, and no lid lag. Neck: Supple with full range of motion. No lymphadenopathy or thyromegaly. Cardiovascular: Regular rate and rhythm without murmurs, rubs, or gallops appreciated. Pulmonary: Clear to auscultation bilaterally without crackles, wheezes, or rhonchi. Normal respiratory effort with no use of accessory muscles. Abdomen: Soft, bowel sounds present, nontender, nondistended. No hepatosplenomegaly or masses appreciated. Extremities: No clubbing, cyanosis, or edema. Skin: Normal temperature, turgor, and texture; no rash, ulcers, or subcutaneous nodules appreciated. Neurological: Cranial nerves grossly intact. Psychiatric: Depressed mood with flat affect. Guarded and provides very little information. Alert and oriented to person, place, and time. Objective Labs Result Diagrams: 10/15/18 05:12 10/16/18 04:51 Discharge Plan Discharge Plan Patient Disposition: [facility] facility: [facility] Under care of provider: Dr. Deonte Steward Transportation: Ambulance Discharge Med Rec/Prescriptions Prescriptions: No Action No Known Home Medications RF: 0 Follow up/Referrals: Raul Todd MD [Primary Care Provider] - Discharge Orders: Discharge (Order); Ordered 10/17/18 Ordered By: Ivett Delgado Discharge Health Status Precautions: [place] Provider Discharge Instructions Diet: Regular Discharge Data Primary Care Provider: Raul Todd Attending Provider: Eric Reed Admjose f Date/Time: 10/15/18 00:30 Quality VTE Deep Vein Thrombosis/Pulmonary Embolism Present on Admission: No
--- NOTE | 2018-10-17 09:41 | PC.NURSE ---
Addendum entered by Helen Terrazas R.N. 10/17/18 10:22: REPORT GIVEN TO URIAH AT [facility] AT [facility]- ETA 11AM- AT BEDSIDE Original Note: preparing to discharge pt to [facility] - pt is willing to go and hopeful for some resolution. IV REMOVED, PT HAS SHOWERED AND BEEN COMPLIANT WITH ALL PRECAUTIONS AND REQUESTS OF STAFF- , BRY, ENROUTE WITH CLOTHING AND PERSONAL EFFECTS AND AWAITNG TRANSPORT AT THIS TIME
--- NOTE | 2018-10-17 11:58 | CM.DPC ---
DCP/continued: Reviewed chart. Spoke with Dr. Delgado this AM. She reports that patient is medically stable for transfer to inpatient [facility]. Placed call to [facility] spoke with April # [phone] she reports that patient has been accepted. Dr. Deonte Steward is accepting physician. RN reports that CPAP brought in last night by girlfriend/Munira. RN/Helen provided with number to call nursing report. Asked ELIGIBILITY CONSULTANT/Rosa Maria to set up non-urgent BLS transport. Medical necessity form completed. SUPPLY CRIB ATTENDANT met with patient and spouse/Charlotte both continue to be in agreement with transfer to inpatient behavioral health at [facility]. Per April at [facility] they will obtain the authorization from [facility] out of [facility]. P: [facility] today via non-urgent BLS transport. Due to severity of suicide attempt non-urgent BLS determined to be safest mode of transport. signed medical necessity. MGIUEL Roy
--- NOTE | 2018-10-17 13:00 | CM.DPC ---
DCP Cont: Faxed discharge summary to [facility] at fax # [phone]. Fax confirmation scanned in. Rosa Maria Ramos, Care Title Attorney
== END 2018-10-17 10:05 | DRG 917 ==
LOC: ED 23:37 → AC 10-15 00:44 → ICU 10-15 11:24 → AC 10-16 07:38 → ICU 10-16 11:45
PROVIDERS: Family Medicine; Admitting Provider Nurse Practitioner Adult Health; Emergency Provider Emergency Medicine; PCP Family Medicine; Visit Provider Nurse Practitioner Adult Health
DX: T45.0X2A Poisoning by antiallergic and antiemetic drugs, intentional self-harm, initial encounter (principal); G92 Toxic encephalopathy; R44.3 Hallucinations, unspecified; R40.2362 Coma scale, best motor response, obeys commands, at arrival to emergency department; R40.2142 Coma scale, eyes open, spontaneous, at arrival to emergency department; R40.2242 Coma scale, best verbal response, confused conversation, at arrival to emergency department; R41.0 Disorientation, unspecified; E87.6 Hypokalemia
CPT/HCPCS: 36415; 51798; 70450; 80048; 80053; 80305; 80320; 80329; 81003; 82009; 82140; 83605; 83690; 84443; 85025; 93005; 99283; 99285; G0480; J1650; J2060; J3480

== ENCOUNTER 2020-08-14 23:29 | Emergency (ER) | payer BC, SELFPAY ==
[2018-10-19 14:13] VITALS: BMI 31.0
[2020-08-14 23:35] VITALS: BP 150/82; PULSE 112; RESP 17; TEMP 37.7; O2SAT 96; BMI 31.8
[2020-08-14 23:41] VITALS: BP 150/82; PULSE 112; O2SAT 95
[2020-08-14 23:42] VITALS: BP 150/81; PULSE 112; O2SAT 96
[2020-08-15] VITALS (7 sets, daily range): BP systolic 147–148; BP diastolic 87; PULSE 98–112; O2SAT 95–98
--- NOTE | 2020-08-15 00:06 | DI.RAD.S_ITS ---
PROCEDURE: XR HIP W PEL IF DONE LT 2V INDICATIONS: pain in hip unknow injury TECHNIQUE: AP pelvis with lateral view(s) of the left hip(s). COMPARISON: None. FINDINGS: Bones: No fractures or dislocations. Pelvic ring appears intact. No suspicious bony lesions. Soft tissues: The visualized bowel gas pattern is normal. No suspicious soft tissue calcifications. IMPRESSION: No fracture. No osseous lesion. If symptoms and/or clinical suspicion for pathology persists, further assessment with repeat radiographs (7-10 days) or advanced imaging (e.g. CT, MRI or bone scan) should be considered. Dictated by: Elizabeth Vieyra MD, PhD on 08/15/2020 at 8:08 Approved by: Elizabeth Vieyra MD, PhD on 08/15/2020 at 8:09
--- NOTE | 2020-08-15 01:37 | ED_ITS ---
HPI - Extremity Problem General Chief complaint: Extremity Problem,Nontraumatic Stated complaint: left hip pain since yesterday hurts to walk Time Seen by Provider: 08/15/20 01:07 Source: patient Mode of arrival: Ambulatory Limitations: no limitations History of Present Illness HPI Narrative: Patient is a 45-year-old male who presents with left hip pain. He says he noticed a little discomfort in his buttock area earlier today but has progressively gotten worsening occasionally has radiation down his behind his leg. But no numbness tingling or weakness. No changes in bowel or back bladder habits. He denies any injury or sudden movements. He has tried some cream without any relief. He cannot find a comfortable position. It sometimes hurts when he walks. MD Complaint: extremity pain Onset (ago): hour(s) Pain Consistency: constant Location: left Related Data Home Medications Medication Instructions Recorded Confirmed Respironics Dreamstation CPAP #1 ea 11/21/18 01/11/19 Previous Rx's Medication Instructions Recorded escitalopram oxalate 10 mg tablet 5 mg PO DAILY #45 tab 04/09/20 cyclobenzaprine 5 mg PO TID PRN #10 tab 08/15/20 Allergies Allergy/AdvReac Type Severity Reaction Status Date / Time Penicillins [PENICILLINS] Allergy Unknown Hives Verified 08/14/20 23:44 Sulfa (Sulfonamide Allergy Unknown Hives Verified 08/14/20 23:44 Antibiotics) [SULFA (SULFONAMIDE ANTIBIOTICS)] Review of Systems Review of Systems Narrative: GENERAL: Denies chills,fever HEENT: Denies throat pain RESPIRATORY: Denies dyspnea, cough, wheezing CARDIOVASCULAR: Denies chest pain, palpitations GASTROINTESTINAL: Denies nausea, vomiting MUSCULOSKELETAL: See HPI SKIN: No rash, no laceration, no pruritus NEUROLOGIC: Denies weakness, dizziness, headache, numbness 8 point review of systems is negative except for those stated above and HPI Patient History Medical History Chicken pox Chronic back pain Fractures Keloid scar Obstructive sleep apnea Surgical History No history of previous surgery (08/30/15) Family History Mother Age: 64 Mental health problem Brother No problems noted. Sister No problems noted. Social History marital status: household members: spouse Smoking Status: Never smoker alcohol intake: current substance use type: does not use Smoking Status: Never smoker alcohol intake frequency: holidays/special occasions only Substance Use Type: does not use Exam Initial Vital Signs Initial Vital Signs: Vital Signs Temperature 100 F H 08/14/20 23:35 Pulse Rate 112 H 08/14/20 23:35 Respiratory Rate 17 08/14/20 23:35 Blood Pressure 150/82 H 08/14/20 23:35 Pulse Oximetry 96 08/14/20 23:35 GENERAL: Alert pleasant 45-year-old male CARDIOVASCULAR: peripheral pulses in tact, cap refill <2 sec RESPIRATORY: No respiratory distress, speaks in full sentences without difficul ty EXTREMITIES: Normal range of motion, no clubbing or edema. Neurovascularly intact Left lower extremity buttock is tender. Pain with internal and external rotation of the hip. Sensation in lower extremities intact and equal. NEUROLOGICAL: Cranial nerves II through XII grossly intact. Normal gait and speech. SKIN: Warm, dry, no petechiae, no rashes or lesions. Course Orders Ordered: ED Orders 08/15/20 00:06 XR hip w pel if done LT 2V Stat Discontinued Medications Cyclobenzaprine HCl (Cyclobenzaprine 10 Mg Prepack) 1 bottle MISC SEEINSTR ONE Stop: 08/15/20 01:48 Last Admin: 08/15/20 02:00 Dose: 1 bottle Documented by: BRENDA Ketorolac Tromethamine (Ketorolac 60 Mg/2 Ml Vial) 30 mg IM NOW ONE Stop: 08/15/20 01:48 Last Admin: 08/15/20 02:00 Dose: 30 mg Documented by: BRENDA Vital Signs Vital signs: Vital Signs - 8 hr 08/14/20 23:35 08/14/20 23:41 08/14/20 23:42 Temperature 100 F H Pulse Rate 112 H 112 H 112 H Respiratory Rate 17 Blood Pressure 150/82 H 150/82 H 150/81 H Pulse Oximetry 96 95 96 08/15/20 00:00 08/15/20 00:30 08/15/20 01:00 Temperature Pulse Rate 112 H 104 H 108 H Respiratory Rate Blood Pressure 147/87 H Pulse Oximetry 95 96 98 08/15/20 01:30 08/15/20 02:00 08/15/20 02:02 Temperature Pulse Rate 101 H 98 H 100 H Respiratory Rate Blood Pressure Pulse Oximetry 96 96 98 08/15/20 02:04 Temperature Pulse Rate Respiratory Rate Blood Pressure 148/87 H Pulse Oximetry MDM - Extremity (Nontraumatic) Imaging Data Extremity x-ray #1: Radiologist's Impression: Preliminary report no significant bony abnormality MDM Narrative Medical decision making narrative: Patient is likely having sciatic pain with pain radiating from the hip down behind the knee. Discharge Plan Departure Patient Disposition: Home Clinical Impression: Acute low back pain with sciatica Qualifiers: Back pain laterality: left Sciatica laterality: sciatica of left side Qualified Code(s): M54.42 - Lumbago with sciatica, left side Instructions: DI for Sciatica Activity Restrictions/Additional Instructions: *You have been diagnosed with sciatic pain *What to do: At this time pain is likely from muscle spasm and the sciatic nerve. Recommend heating pad, light stretching *Continue to take medications as directed Ibuprofen 800 mg every 8 hours if needed for [id number] pain with food Flexeril 5 mg every 8 hours if needed for muscle spasm--scan cause drowsiness do not drive *Follow up with your primary care provider in 2-3 days *Return to ER if you should have weakness numbness tingling of lower extremity worsening pain or any new, worsening or concerning symptoms Prescriptions: New cyclobenzaprine 5 mg tablet 5 mg PO TID PRN (Reason: muscle spasm) Qty: 10 RF: 0 No Action escitalopram oxalate 10 mg tablet 5 mg PO DAILY Qty: 45 RF: 1 (DME) Respironics Dreamstation CPAP Qty: 1 RF: 0 Referrals: Raul Todd MD [Primary Care Provider] -
[2020-08-15] MEDS: KETOROLAC 60 MG/2 ML VIAL 30 MG IM (02:00)
[2020-08-15] MEDS: CYCLOBENZAPRINE 10 MG PREPACK 1 BOTTLE MISC (02:00)
== END 2020-08-15 02:06 | disposition home or self-care (01) ==
PROVIDERS: Emergency Provider Emergency Medicine; PCP Family Medicine
DX: M54.42 Lumbago with sciatica, left side (principal)
CPT/HCPCS: 73502; 96372; 99283; J1885